=== PATIENT | male | born 1980 | race African-American/Black ===

== ENCOUNTER 2017-03-11 14:48 | Emergency (ER) | payer SELFPAY ==
[~2017-03-11] VITALS: Ht 188 cm; Wt 86.0 kg
[2017-03-11] MEDS ORDERED: KETOROLAC TROMETHAMINE 60 MG/2 ML VIAL IM ONE (15:15)
[2017-03-11 15:59] VITALS: BP 120/85
== END 2017-03-11 16:00 | disposition home or self-care (01) ==
LOC: EMS 14:52
DX: S13.4XXA Sprain of ligaments of cervical spine, initial encounter (principal); S23.3XXA Sprain of ligaments of thoracic spine, initial encounter; S33.5XXA Sprain of ligaments of lumbar spine, initial encounter; V89.2XXA Person injured in unspecified motor-vehicle accident, traffic, initial encounter; Y93.89 Activity, other specified; Y92.89 Other specified places as the place of occurrence of the external cause; Y99.8 Other external cause status
CPT/HCPCS: 96372; 99283; J1885